=== PATIENT | female | born 1995 | race Caucasian/White ===

== ENCOUNTER 2021-09-02 12:47 | Emergency (ER) | payer BC ==
[2021-09-02 13:41] VITALS: BP 136/82; PULSE 90; RESP 19; TEMP 98.4
[2021-09-02] MEDS ORDERED: methylPREDNISolone SOD SUCCI 125 MG/2 ML VIAL IM ONE (15:57)
[2021-09-02] MEDS ORDERED: diphenhydrAMINE 25 MG CAP PO STA (15:57)
--- NOTE | 2021-09-02 16:01 | ED ---
Allergic Reaction HPI - General Chief complaint: Allergic Reaction Stated complaint: leg redness, possible allergic reaction Time Seen by Provider: 09/02/21 15:24 Source: patient, RN notes reviewed Mode of arrival: ambulatory Limitations: no limitations - History of Present Illness Initial Comments: Patient is a 26-year-old female presenting to the emergency department with a possible ALLERGIC reaction. Patient states she's been sitting in a hotel since yesterday and feels like it could be the detergent that the hotel is using. She started developing redness and the spots on her legs. She states she's been very itchy as well. Neither any recent changes to her lotions or shampoo, the hotel is only the new thing. She denies any chest pain or shortness of breath, no wheezing, no difficulty breathing. She denies any nausea or vomiting. She has no further complaints at this time. Her vitals are stable upon arrival. - Related Data Allergies Allergy/AdvReac Type Severity Reaction Status Date / Time No Known Allergies Allergy Verified 09/02/21 13:40 Review of Systems ROS Statement: Those systems with pertinent positive or pertinent negative responses have been documented in the HPI. ROS Other: All systems not noted in ROS Statement are negative. Past Medical History Past Medical History: No Reported History History of Any Multi-Drug Resistant Organisms: None Reported Past Surgical History: No Surgical Hx Reported Past Psychological History: No Psychological Hx Reported Smoking Status: Never smoker Past Alcohol Use History: None Reported Past Drug Use History: None Reported General Exam - General Exam Comments Initial Comments: GENERAL: Patient is well-developed and well-nourished. Patient is nontoxic and in no a cute distress. HEAD: Atraumatic, normocephalic. EYES: Pupils equal round and reactive to light, extraocular movements intact, sclera anicteric, conjunctiva are normal. Eyelids were unremarkable. ENT: Moist mucous membranes. NECK: Normal range of motion, supple without lymphadenopathy or JVD. LUNGS: Unlabored respirations. Breath sounds clear to auscultation bilaterally and equal. No wheezes rales or rhonchi. HEART: Regular rate and rhythm without murmurs, rubs or gallops. MUSCULOSKELETAL: Normal extremities with adequate strength and normal range of motion, no pitting or edema. No clubbing or cyanosis. NEUROLOGICAL: Patient is alert and oriented x 3. SKIN: Warm, Dry, normal turgor. She has some mild erythematous patches, mild hives noted on the right lower leg. Limitations: no limitations Course Vital Signs 09/02/21 13:38 Temperature 98.4 F Pulse Rate 90 Respiratory 19 Rate Blood Pressure 136/82 O2 Sat by Pulse 98 Oximetry Medical Decision Making - Medical Decision Making Patient is a 26-year-old female here with an ALLERGIC reaction to possibly this sheet at the hotel she has been staying at. She has a history of sensitive skin. No acute findings on exam other than some mild rash to the right lower leg. She is very pruritic. Patient be given dose of Benadryl here and a shot of steroids. I recommended continue with Benadryl as needed for itchiness over the next few days. She is agreeable to this plan of care and she is stable for discharge. Disposition Clinical Impression: Contact dermatitis, Allergic reaction Disposition: HOME SELF-CARE Condition: Stable Instructions (If sedation given, give patient instructions): Acute Rash (ED) Additional Instructions: Please return to the Emergency Department if symptoms worsen or any other concerns. Recommend a Benadryl, 25 mg, an [id number] dose, every 8 hours as needed for itchiness. Is patient prescribed a controlled substance at d/c from ED?: No Referrals: None,Stated [Primary Care Provider] - 1-2 days Time of Disposition: 16:01
== END 2021-09-02 16:20 | disposition home or self-care (01) ==
LOC: EC 12:47
DX: L25.9 Unspecified contact dermatitis, unspecified cause (principal)
CPT/HCPCS: 99283; 96372; J2930